=== PATIENT | male | born 1975 | race Caucasian/White ===

== ENCOUNTER → 2020-10-07 | Outpatient (REF) | payer OTHER | LOC: M SMT 10:42 | PROVIDERS: ATTEND Urology | DX: Z30.2 Encounter for sterilization (principal) ==

== ENCOUNTER → 2020-12-06 | Outpatient (REF) | payer OTHER ==
[2020-12-06 10:10] LABS: SEMEN APPEARANCE OPAQUE (OPAQUE); SEMEN VOLUME 6.8 ml (2.0-5.0)
[2020-12-06 10:11] LABS: SEMEN VISCOSITY LIQUID (LIQUID); WBC CONCENTRATION <=1 M/ml (<=1 M/ml)
== END ==
LOC: M SMT 10:05
PROVIDERS: ATTEND Urology
DX: Z30.2 Encounter for sterilization (principal)

== ENCOUNTER → 2022-08-24 | Outpatient (REF) | payer OTHER | LOC: M LAB REF 16:04 | PROVIDERS: ATTEND Internal Medicine Gastroenterology | DX: R19.7 Diarrhea, unspecified (principal) ==

== ENCOUNTER 2023-01-02 07:51 | Day surgery (SDC) | payer OTHER ==
[~2023-01-02] VITALS: Ht 177.8 cm; Wt 101.6 kg
[~2023-01-02 07:51] MED LIST: ALLO100T PO; ATOR80TA59 PO; CYCL-707 PO; DICL1GEL3 TOP; DICL75TA PO; EZET10TA21 PO; FERR32TA PO; NS 1,000 ML IV ONE; SILD100T7 PO; VITA100093 PO; areds PO
[2023-01-02 10:10] VITALS: BP 130/73
[2023-01-02] MEDS ORDERED: propofoL 200 MG/20 ML VIAL As Ordered ONE (10:10)
[2023-01-02] MEDS ORDERED: LIDOCAINE 2% 100MG/5ML SDV (FOR ANES.) As Ordered ONE (10:10)
== END 2023-01-02 10:19 | disposition home or self-care (01) ==
LOC: M OPP 07:51
PROVIDERS: ATTEND Internal Medicine Gastroenterology
DX: D12.6 Benign neoplasm of colon, unspecified (principal); K63.89 Other specified diseases of intestine; K57.30 Diverticulosis of large intestine without perforation or abscess without bleeding; G47.33 Obstructive sleep apnea (adult) (pediatric); Z99.89 Dependence on other enabling machines and devices; Z79.02 Long term (current) use of antithrombotics/antiplatelets; Z79.899 Other long term (current) drug therapy; F17.200 Nicotine dependence, unspecified, uncomplicated

== ENCOUNTER → 2024-05-07 | Outpatient (CLI) | payer OTHER ==
[~2024-05-07] MED LIST changes: +DICL100G10 TOP; -DICL1GEL3 TOP; -NS 1,000 ML IV ONE
== END ==
LOC: M RAD 07:59
PROVIDERS: ATTEND Internal Medicine
DX: M54.2 Cervicalgia (principal)